=== PATIENT | female | born 2005 | race African-American/Black ===

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

== ENCOUNTER 2023-10-06 18:43 | Outpatient (CLI) | payer MEDICAID, SELFPAY | END 2023-10-06 18:44 | disposition home or self-care (01) | LOC: NFLDREF 10-14 12:20 | PROVIDERS: Visit Provider Nurse Practitioner | DX: R10.31 Right lower quadrant pain (principal) | CPT/HCPCS: 87086 ==

== ENCOUNTER 2025-03-08 07:06 | Outpatient (CLI) | payer MEDICAID, SELFPAY ==
--- NOTE | 2025-03-08 07:15 | CRLHL7_ITS ---
For Patients: As a result of the Century Cures Act, medical imaging exams and procedure reports are released immediately into your electronic medical record. You may view this report before your referring provider. If you have questions, please contact your health care provider. Indication: Dizziness and giddiness. Technique: Multiplanar multisequence MR imaging of the brain and internal auditory canals prior to and following intravenous administration of 20 mL Dotarem. Comparison: None. Findings: The ventricles and sulci are within normal limits for patient age. No mass effect or midline shift. Few punctate FLAIR hyperintensities within the high right frontal white matter, nonspecific. No intracranial hemorrhage or pathologic extra-axial fluid collection. No diffusion restriction to suggest acute infarction. No pathologic intracranial enhancement. No mass or pathologic enhancement within the internal auditory canals or cerebellopontine angles. No concerning signal abnormalities in the inner ear structures. No vascular loop in the internal auditory canals. The major arterial flow voids of the skull base are preserved. Globes are symmetric. Paranasal sinuses are well aerated. Mastoid air cells are clear. Impression: 1. No acute intracranial abnormality. 2. No mass or pathologic enhancement within the internal auditory canals or cerebellopontine angles. Dictated by Elliot Dominguez MD @ 03/08/2025 11:03:23 AM (Electronically Signed)
== END 2025-03-08 07:07 | disposition home or self-care (01) ==
LOC: MRI 07:07
PROVIDERS: PCP Pediatrics; Visit Provider Physician Assistant
DX: R42 Dizziness and giddiness (principal)
CPT/HCPCS: 70553; A9575